=== PATIENT | female | born 1975 | race Asian ===

== ENCOUNTER 2020-02-28 13:04 | Inpatient (IN) | payer OTHER ==
[~2020-02-28] VITALS: Ht 165.1 cm; Wt 70.8 kg
[2020-02-28 13:12] VITALS: Ht 165.1 cm; Wt 70.8 kg
[2020-02-28 13:50] LABS: BASOPHIL % 0.4 % (0-2); PLATELET COUNT 332 x10^3mcL (130-400)
[2020-02-28 14:00] LABS: CALCIUM 9.4 mg/dL (8.5-10.1); CARBON DIOXIDE 29.3 mmol/L (21-32); CHLORIDE SERUM 100 mmol/L (98-107); CREATININE SERUM 0.8 mg/dL (0.6-1.0); GFR1 > 60 mL/min; GLUCOSE SERUM 144 mg/dL (74-106); POTASSIUM SERUM 4.2 mmol/L (3.5-5.1); SODIUM SERUM 136 mmol/L (136-145)
[2020-02-28 14:01] LABS: UA SPECIFIC GRAVITY >=1.030 (1.005-1.035); microscopic required? YES; urine erythrocyte 2+ (NEGATIVE)
[2020-02-28 14:04] LABS: ALBUMIN 4.1 g/dL (3.4-5.0); ALKALINE PHOSPHATASE 253 U/L (46-116); ALT/SGPT 277 U/L (14-59); AST/SGOT 339 U/L (15-37); CHOLESTEROL 188 mg/dL (<200); CHOLESTEROL/HDL RATIO 3.5; HDL CHOLESTEROL 53 mg/dL (40-60); LIPASE 111 IU/L (73-393); TRIGLYCERIDES 65 mg/dL (<150)
[2020-02-28 14:12] LABS: TOTAL PROTEIN, SERUM 8.5 g/dL (6.4-8.2)
[2020-02-28 15:57] LABS: FREE T4 1.31 ng/dL (0.76-1.46); FREE THYROXINE INDEX 3.6 ug/dL (1.4-4.5); T4(THYROXINE) 10.5 ug/dL (4.7-13.3)
[2020-02-28 16:16] LABS: MAGNESIUM 2.1 mg/dL (1.8-2.4); PHOSPHOROUS 3.6 mg/dL (2.5-4.9)
[2020-02-28 16:24] LABS: T3 TOTAL 1.36 ng/mL
[2020-02-28 17:19] VITALS: BP 133/73
[2020-02-28 20:30] VITALS: BP 121/92
[2020-02-29 05:33] VITALS: BP 104/62
[2020-02-29 06:58] LABS: PLATELET COUNT 281 x10^3mcL (130-400)
[2020-02-29 07:08] LABS: RED CELL DISTRIBUTION WIDTH 18.1 % (11.5-14.5)
[2020-02-29 07:29] LABS: CALCIUM 8.3 mg/dL (8.5-10.1); CARBON DIOXIDE 22.8 mmol/L (21-32); CHLORIDE SERUM 106 mmol/L (98-107); CREATININE SERUM 0.7 mg/dL (0.6-1.0); GFR1 > 60 mL/min; GLUCOSE SERUM 87 mg/dL (74-106); POTASSIUM SERUM 3.6 mmol/L (3.5-5.1); SODIUM SERUM 139 mmol/L (136-145)
[2020-02-29 07:52] VITALS: BP 100/64
[2020-02-29 08:31] LABS: BILIRUBIN DIRECT 0.43 mg/dL (0.0-0.2); BILIRUBIN TOTAL 1.24 mg/dL (0.20-1.00); TOTAL PROTEIN, SERUM 6.6 g/dL (6.4-8.2)
[2020-02-29 11:59] VITALS: BP 123/62
[2020-02-29 17:00] VITALS: BP 105/55
[2020-02-29 21:09] VITALS: BP 110/58
[2020-03-01 05:36] VITALS: BP 129/74
[2020-03-01 06:53] LABS: BASOPHIL % 0.3 % (0-2); PLATELET COUNT 278 x10^3mcL (130-400)
[2020-03-01 07:12] LABS: RED CELL DISTRIBUTION WIDTH 18.4 % (11.5-14.5)
[2020-03-01 07:40] LABS: ALKALINE PHOSPHATASE 165 U/L (46-116); ALT/SGPT 580 U/L (14-59); AST/SGOT 240 U/L (15-37); BILIRUBIN TOTAL 0.55 mg/dL (0.20-1.00); CALCIUM 8.1 mg/dL (8.5-10.1); CARBON DIOXIDE 21.9 mmol/L (21-32); CHLORIDE SERUM 103 mmol/L (98-107); CREATININE SERUM 0.7 mg/dL (0.6-1.0); GFR1 > 60 mL/min; GLUCOSE SERUM 93 mg/dL (74-106); POTASSIUM SERUM 3.6 mmol/L (3.5-5.1); SODIUM SERUM 136 mmol/L (136-145); TOTAL PROTEIN, SERUM 6.3 g/dL (6.4-8.2)
[2020-03-01 07:47] LABS: ALBUMIN 2.9 g/dL (3.4-5.0)
[2020-03-01 08:08] VITALS: BP 112/64
[2020-03-01 10:12] VITALS: BP 112/64
[2020-03-01 11:49] VITALS: BP 119/58
[2020-03-01 16:39] VITALS: BP 115/65
== END 2020-03-01 17:29 | disposition home or self-care (01) | DRG 418 ==
LOC: ED 13:04 → MU 15:28 → EDBEDREQ 15:29 → MU 16:44
PROVIDERS: Specialist; Surgery; ADMIT Student in an Organized Health Care Education/Training Program; ATTEND Student in an Organized Health Care Education/Training Program
PROC: BF101ZZ Fluoroscopy of Bile Ducts using Low Osmolar Contrast (ICD-10-PCS; 2020-02-29)
PROC: 0FT44ZZ Resection of Gallbladder, Percutaneous Endoscopic Approach (ICD-10-PCS; principal; 2020-02-29 14:00)
DX: K80.42 Calculus of bile duct with acute cholecystitis without obstruction (principal); N39.0 Urinary tract infection, site not specified; D64.9 Anemia, unspecified; E66.9 Obesity, unspecified; Z79.899 Other long term (current) drug therapy; Z79.891 Long term (current) use of opiate analgesic; Z79.01 Long term (current) use of anticoagulants; Z88.8 Allergy status to other drugs, medicaments and biological substances; Z20.828 Contact with and (suspected) exposure to other viral communicable diseases
CPT/HCPCS: 74181; 84439; C1758; C9113; G0378; J1170; J1885; J2543; J3010; J3490; J7030; Q0092; Q9967